=== PATIENT | male | born 1950 | race Caucasian/White ===

== ENCOUNTER → 2020-09-15 | Outpatient (CLI) | payer MEDICARE ==
[~2020-09-15] MED LIST: CARDIZEM CD120 MG PO; CARDIZEM60 MG PO; DIABETA 5 MG TAB5 MG PO; ECOTRIN81 MG PO; GLUCOPHAGE1000 MG PO; HYDROCODON-ACE1 EAC2 PO; LOPRESSOR 50 MG50 MG PO; LOSARTAN-HCTZ1 EAC2 PO; OZEMPIC INJ; PRAVACHOL80 MG PO; PRAVASTATIN SOD80 MG PO; SYNTHROID112 MCG PO; TOUJEO MAX300 UNIT/1 INJ; TRESIBA SC; VALSARTAN80 MG PO; VITAMIN B12 PO; VITAMIN D3125 MCG PO
== END ==
LOC: EXRD 10:34
DX: M79.89 Other specified soft tissue disorders (principal)
CPT/HCPCS: 76882

== ENCOUNTER → 2020-09-27 | Outpatient (CLI) | payer MEDICARE | LOC: OPSV2 09:00 | PROVIDERS: Anesthesiology | DX: Z01.818 Encounter for other preprocedural examination (principal); Z20.822 Contact with and (suspected) exposure to COVID-19 | CPT/HCPCS: 36415; 80048; 93005; U0003 ==

== ENCOUNTER → 2020-09-29 | Day surgery (SDC) | payer MEDICARE | END | disposition home or self-care (01) | LOC: OR 06:00 | DX: C49.22 Malignant neoplasm of connective and soft tissue of left lower limb, including hip (principal); S70.12XA Contusion of left thigh, initial encounter; I12.9 Hypertensive chronic kidney disease with stage 1 through stage 4 chronic kidney disease, or unspecified chronic kidney disease; N18.9 Chronic kidney disease, unspecified; E11.9 Type 2 diabetes mellitus without complications; E78.5 Hyperlipidemia, unspecified; E03.9 Hypothyroidism, unspecified; D50.9 Iron deficiency anemia, unspecified; Z88.6 Allergy status to analgesic agent; Z79.82 Long term (current) use of aspirin; Z79.4 Long term (current) use of insulin; Z20.822 Contact with and (suspected) exposure to COVID-19 | CPT/HCPCS: 82962; J0690; J2250; J2405; J2704; J3010; J7120 ==

== ENCOUNTER → 2020-11-03 | Outpatient (CLI) | payer MEDICARE | LOC: MRI 09-28 13:30 → US 09-28 13:30 → MRI 09-28 14:00 | DX: R22.42 Localized swelling, mass and lump, left lower limb (principal) | CPT/HCPCS: 36415; 73720; 82565; A9577 ==